=== PATIENT | male | born 1955 | race Caucasian/White ===

== ENCOUNTER → 2017-12-11 | Outpatient (CLI) | payer OTHER ==
--- NOTE | 2017-12-11 15:34 | US ---
EXAMINATION TYPE: US abdomen limited DATE OF EXAM: 12/11/2017 COMPARISON: CT abdomen pelvis 06/25/2015, ultrasound abdomen 02/10/2012 CLINICAL HISTORY: R10.84 abdominal pain, generalized. Intermittent RUQ pain EXAM MEASUREMENTS: Liver Length: 15.6 cm Gallbladder Wall: 0.2 cm CBD: 0.4 cm Right Kidney: 11.2 x 4.7 x 4.5 cm Pancreas: Obscured by bowel gas Liver: hyperechoic area right lobe = 2.5 x 1.6 x 2.0cm Gallbladder: no evidence of stones Evidence for sonographic Roegrs's sign: no CBD: appears wnl as visualized Right Kidney: no evidence of hydronephrosis or mass IMPRESSION: 1. Hyperechoic area within the right upper quadrant within the liver. This appears to been present pr eviously and likely represents a hemangioma.
== END | disposition home or self-care (01) ==
LOC: RADUSWWP 14:19
PROVIDERS: ATTEND Family Medicine
DX: R93.2 Abnormal findings on diagnostic imaging of liver and biliary tract (principal); R10.84 Generalized abdominal pain
CPT/HCPCS: 76705

== ENCOUNTER → 2018-02-09 | Outpatient (CLI) | payer OTHER ==
--- NOTE | 2018-02-10 13:25 | CT ---
EXAMINATION TYPE: CT abdomen pelvis w con DATE OF EXAM: 02/09/2018 COMPARISON: Prior exam 06/25/2015 CT abdomen pelvis, ultrasound 12/11/2017 HISTORY: ABDOMINAL PAIN X2 YEARS CT DLP: 557.2 mGycm Automated exposure control for dose reduction was used. TECHNIQUE: Helical acquisition of images from the lung bases through the pelvis have been completed. CONTRAST: Performed with Oral Contrast and with IV Contrast, patient injected with 100 mL of Isovue 300. FINDINGS: There are coronary artery calcifications present. There may be a small hiatal hernia. LUNG BASES: No significant abnormality is appreciated. AORTA: No significant abnormality is appreciated. LIVER/GB: Focal hypodense region adjacent to the inferior vena cava within the liver shows nodular en hancement which progresses over time similar to previous CT and is compatible with hemangioma, liver shows low density, there could be underlying hepatic steatosis, gallbladder is normal.. PANCREAS: No significant abnormality is seen. SPLEEN: No significant abnormality is seen. ADRENALS: No significant abnormality is seen. KIDNEYS: No significant abnormality is seen. REPRODUCTIVE ORGANS: No significant abnormality is seen BOWEL: No significant abnormality is seen. The appendix is normal. FREE AIR: No Free Air visible. ASCITES: None visible. PELVIC ADENOPATHY: None visualized. RETROPERITONEAL ADENOPATHY: No Retroperitoneal Adenopathy visible. URINARY BLADDER: Urinary bladder wall is somewhat thickened possibly due to chronic bladder outlet o bstruction, correlate to exclude cystitis. OSSEOUS STRUCTURES: No there is facet arthropathy PICC change, degenerative disc changes visualized spine, there is a spinal curvature.. IMPRESSION: NONSPECIFIC FINDINGS DESCRIBED ABOVE.
== END | disposition home or self-care (01) ==
LOC: RADCTMAIN 15:23
PROVIDERS: ATTEND Family Medicine
DX: I25.10 Atherosclerotic heart disease of native coronary artery without angina pectoris (principal); R10.84 Generalized abdominal pain
CPT/HCPCS: 74177; Q9967

== ENCOUNTER 2020-03-12 11:38 | Day surgery (SDC) | payer OTHER ==
[2020-03-11 09:58] VITALS: BMI 24.0
[~2020-03-12 11:38] MED LIST: LACTATED RINGERS 1,000 ML IV SCH; LIDOCAINE 1% (10MG/ML) FOR IV START INTRADERMA PRN
[2020-03-12 12:15] VITALS: RESP 16; TEMP 97.6
[2020-03-12] MEDS ORDERED: PROPOFOL 10 MG/ML 20 ML VIAL IV ONE (12:58)
[2020-03-12] MEDS ORDERED: LIDOCAINE 1% INJ 10MG/ML (20 ML MDV) ONE (12:58)
--- NOTE | 2020-03-12 13:45 | P.PCN ---
Date of Procedure: 03/12/20 Description of Procedure: Brief history: Patient is a pleasant 64-year-old male presenting for EGD and colonoscopy for symptoms of abdominal pain, GERD, constipation and pain with bowel movements. Patient reports symptoms presents over the last little while. Worsen constipation. Lower rectal fullness and pain with bowel movements. Also reports other diffuse abdominal pain. Procedure performed: Esophagogastroduodenoscopy with biopsy Colonoscopy Estimated blood loss: Minimal. Preoperative diagnosis: Abdominal pain, GERD, pain with bowel movements, constipation Anesthesia: MAC Procedure: After informed consent was obtained from the patient was brought into the endoscopy unit and IV sedation was administered by anesthesia under continuous monitoring. Initially upper endoscopy was done. The Olympus GF 190 video endoscope was inserted into the mouth and esophagus intubated without any difficulty and was gradually advanced into the stomach and duodenum and carefully examined. The bulb and second part of the duodenum appeared normal, with biopsies taken. The scope was then withdrawn into the stomach adequately insufflated with air and upon careful examination the antrum and body, cardia and fundus appeared normal, except for some mild scattered erythema in the antrum and body suggestive of gastritis with biopsies taken. The scope was then withdrawn into the esophagus. The GE junction was located at 40 cm to the incisors, with biopsies taken. 2 cm hiatal hernia. It appeared regular with no erythema erosions or ulcerations. Rest of the esophagus appeared normal. Patient tolerated the procedure well. At this time the patient continued to remain sedation. Initial digital rectal examination was normal. Olympus CF 190 video colonoscope was then inserted into the rectum and gradually advanced to the cecum without any difficulty. Careful examination was performed as the scope was gradually being withdrawn. The prep was excellent. The cecum, ascending colon, transverse colon, descending colon, sigmoid colon and rectum appeared normal. A few scattered diverticula in the sigmoid colon. Low-grade internal hemorrhoids. Retroflexion was performed in the rectum and no lesions were noted. Patient tolerated the procedure well. Impression: 1. Mild gastritis. Small hiatal hernia. Biopsies of the antrum and body, GE junction and duodenum. 2. Mild sigmoid diverticulosis. Low-grade internal hemorrhoids. Recommendations: Findings of this examination were discussed with the patient as well as his family. Okay to resume diet. Okay to resume medications. Await pathology from biopsies. Recommendation is for the patient to continue bowel regimen and with MiraLAX as well as local hemorrhoidal care including warm baths, limiting time on the toilet, and medicated wipes.
[2020-03-12 13:55] VITALS: BP 132/88; PULSE 62
== END 2020-03-12 14:27 | disposition home or self-care (01) ==
LOC: ORWHC2ENDO 11:38
PROVIDERS: ATTEND Internal Medicine
DX: K62.89 Other specified diseases of anus and rectum (principal); K29.50 Unspecified chronic gastritis without bleeding; K21.9 Gastro-esophageal reflux disease without esophagitis; K44.9 Diaphragmatic hernia without obstruction or gangrene; K57.30 Diverticulosis of large intestine without perforation or abscess without bleeding; K64.8 Other hemorrhoids; I25.10 Atherosclerotic heart disease of native coronary artery without angina pectoris; I10 Essential (primary) hypertension; F17.210 Nicotine dependence, cigarettes, uncomplicated; Z95.5 Presence of coronary angioplasty implant and graft; Z79.891 Long term (current) use of opiate analgesic; Z79.899 Other long term (current) drug therapy
CPT/HCPCS: 88305; 45378; 43239; J2001; J2704

== ENCOUNTER → 2021-10-20 | Day surgery (SDC) | payer MEDICARE, OTHER ==
[2021-10-18 13:48] VITALS: BMI 24.4
[~2021-10-20] MED LIST changes: +LIDOCAINE 1% (10MG/ML) FOR IV START INTRADERMA ONE; -LIDOCAINE 1% (10MG/ML) FOR IV START INTRADERMA PRN; +LIDOCAINE 2% INJ 20 MG/ML (2 ML VIAL) ONE; +PROPOFOL 10 MG/ML 20 ML VIAL IV ONE
[2021-10-20 08:18] VITALS: RESP 16; TEMP 97.6
--- NOTE | 2021-10-20 09:01 | P.PCN ---
Date of Procedure: 10/20/21 Procedure(s) Performed: Brief history: Patient is a pleasant 66-year-old white male scheduled for an elective upper endoscopy as well as colonoscopy as a part of evaluation of GERD/abdominal pain and intermittent rectal bleeding Procedure performed: Esophagogastroduodenoscopy with biopsy Colonoscopy Preoperative diagnosis: GERD/abdominal pain Intermittent rectal bleeding Anesthesia: [facility] [place] Procedure: After informed consent was obtained from the patient was brought into the endoscopy unit and IV sedation was administered by anesthesia under continuous monitoring. Initially upper endoscopy was done. The Olympus GF 160 video endoscope was inserted inserted into the mouth and esophagus intubated without any difficulty and was gradually advanced into the stomach and duodenum and carefully examined. The bulb and second part of the duodenum appeared normal. The scope was then withdrawn into the stomach adequately insufflated with air and upon careful examination the antrum had mild gastritis and biopsies were done from this area. The body, cardia and fundus appeared normal. The scope was then withdrawn into the esophagus. The GE junction was located at 40 cm to the incisors. Small hiatal hernia noted. The GE junction appeared regular and there was a small island of Betancourt's appearing mucosa just proximal to the GE junction measuring 1 mm which was biopsied. Rest of the esophagus appeared normal. Patient tolerated the procedure well. At this time the patient continued to remain sedation. Initial digital rectal examination was normal. Olympus CF 160 video colonoscope was then inserted into the rectum and gradually advanced to the cecum without any difficulty. Careful examination was performed as the scope was gradually being withdrawn. The prep was excellent. The cecum, ascending colon, transverse colon, descending colon, sigmoid colon and rectum appeared normal. Scattered sigmoid diverticulosis seen. Retroflexion was performed in the rectum and monitor hemorrhoids were noted. Patient tolerated the procedure well. Impression: 1. Upper endoscopy revealed small hiatal hernia, irregular GE junction and mild antral gastritis 2. Colonoscopy revealed scattered sigmoid diverticulosis but no evidence of colorectal neoplasia Recommendations: Findings of this examination were discussed with the patient as well as his family. He was advised to continue with omeprazole 20 mg daily and follow antireflux. Recommend repeat screening colonoscopy in 10 years.
[2021-10-20 09:31] VITALS: BP 137/87; PULSE 59
== END ==
LOC: ORWHC2ENDO 07:45
PROVIDERS: ATTEND Internal Medicine Gastroenterology
DX: K29.50 Unspecified chronic gastritis without bleeding (principal); K22.70 Barrett's esophagus without dysplasia; K21.9 Gastro-esophageal reflux disease without esophagitis; K44.9 Diaphragmatic hernia without obstruction or gangrene; K57.31 Diverticulosis of large intestine without perforation or abscess with bleeding; K64.9 Unspecified hemorrhoids; I10 Essential (primary) hypertension; E78.5 Hyperlipidemia, unspecified; F17.210 Nicotine dependence, cigarettes, uncomplicated; I25.2 Old myocardial infarction; Z79.899 Other long term (current) drug therapy
CPT/HCPCS: 88305; 45378; 43239; J2704; J2001

== ENCOUNTER 2023-08-04 14:52 | Emergency (ER) | payer MEDICARE, OTHER ==
--- NOTE | 2023-08-04 15:16 | ED ---
General Adult HPI - General Source: patient, RN notes reviewed Mode of arrival: ambulatory Limitations: no limitations <Nneka Son - Last Filed: 08/04/23 15:18> <Catalino Wen - Last Filed: 08/04/23 19:41> - General Source: RN notes reviewed, old records reviewed, Caregiver Mode of arrival: ambulatory Limitations: no limitations <Sudhakar Giron - Last Filed: 08/17/23 20:29> - General Chief complaint: GI Bleed Stated complaint: blood in stool Time Seen by Provider: 08/04/23 15:04 - History of Present Illness Initial comments: This is a 68-year-old male who presents to the emergency department for rectal bleeding. Reports dark red blood in his stool over the last 3 days. He is on both Brilinta and baby aspirin. He called his primary care provider, and was advised to come to the emergency department for evaluation. Reports abdominal pain, but states that he always has abdominal pain. (Nneka Son) - Related Data Home Medications Medication Instructions Recorded Confirmed DULoxetine HCL [Cymbalta] 30 mg PO DAILY 03/11/20 02/17/23 Metoprolol Tartrate [Lopressor] 25 mg PO HS 03/11/20 02/17/23 Pregabalin [Lyrica] 100 mg PO TID 03/11/20 02/17/23 Ergocalciferol [Vitamin D2 (1250 1,250 mcg PO QMONTHLY 02/17/23 02/17/23 Mcg = 31445 Iu)] Ibuprofen [Motrin] 800 mg PO BID 02/17/23 02/17/23 Losartan Potassium [Cozaar] 100 mg PO DAILY 02/17/23 02/17/23 Nitroglycerin Sl Tabs [Nitrostat] 0.4 mg SUBLINGUAL Q5M PRN 02/17/23 02/17/23 Pantoprazole [Protonix] 40 mg PO DAILY 02/17/23 02/17/23 hydroCHLOROthiazide [Hydrodiuril] 25 mg PO DAILY 02/17/23 02/17/23 Previous Rx's Medication Instructions Recorded Aspirin 81 mg PO DAILY 30 Days #30 tab 02/24/23 Atorvastatin [Lipitor] 80 mg PO HS #30 tab 02/24/23 Calcium Carbonate [Tums] 1,000 mg PO QID PRN #120 tab 02/24/23 Fenofibrate [Lofibra] 160 mg PO DAILY 30 Days #30 tab 02/24/23 Thiamine [Vitamin B-1] 100 mg PO BID #60 tab 02/24/23 Ticagrelor [Brilinta] 90 mg PO BID 21 Days #42 tab 02/24/23 Allergies Allergy/AdvReac Type Severity Reaction Status Date / Time No Known Allergies Allergy Verified 08/04/23 15:17 Review of Systems ROS Other: All systems not noted in ROS Statement are negative. <Nneka Son - Last Filed: 08/04/23 15:18> ROS Other: All systems not noted in ROS Statement are negative. <Catalino Wen - Last Filed: 08/04/23 19:41> ROS Other: All systems not noted in ROS Statement are negative. <Sudhakar Giron - Last Filed: 08/17/23 20:29> ROS Statement: Those systems with pertinent positive or pertinent negative responses have been documented in the HPI. Past Medical History Past Medical History: GERD/Reflux, Hyperlipidemia, Hypertension, Myocardial Infarction (IA) Additional Past Medical History / Comment(s): Back pain, ETOH Last Myocardial Infarction Date:: 2011 History of Any Multi-Drug Resistant Organisms: None Reported Past Surgical History: Heart Catheterization With Stent, Tonsillectomy Additional Past Surgical History / Comment(s): [facility] Procedures Past Anesthesia/Blood Transfusion Reactions: No Reported Reaction Date of Last Stent Placement:: 2011 Past Psychological History: No Psychological Hx Reported Smoking Status: Current every day smoker Past Alcohol Use History: Daily Additional Past Alcohol Use History / Comment(s): Drinks 6-8 beers a day. Past Drug Use History: None Reported - Past Family History Mother Family Medical History: No Reported History Sister(s) Family Medical History: Cancer Additional Family Medical History / Comment(s): Breast cancer <Nneka Son - Last Filed: 08/04/23 15:18> General Exam <Nneka Son - Last Filed: 08/04/23 15:18> - General Exam Comments Initial Comments: Visual Physical Exam Vital signs reviewed General: Well-appearing, nontoxic, no acute distress. Head: Normocephalic, atraumatic Eyes: PERRLA, EOMI ENT: Airway patent Chest: Nonlabored breathing Skin: No visual rash, normal skin tone Neuro: Alert and oriented 3 Musculoskeletal: No gross abnormalities (Nneka Son) Course <Sudhakar Giron - Last Filed: 08/17/23 20:29> Vital Signs 08/04/23 15:15 Temperature 98.5 F Pulse Rate 68 Respiratory 16 Rate Blood Pressure 128/83 O2 Sat by Pulse 99 Oximetry - Reevaluation(s) Reevaluation #1: Records reviewed (Sudhakar Giron) Reevaluation #2: Patient symptoms unchanged (Sudhakar Giron) Reevaluation #3: Patient informed of results and questions answered (Sudhakar Giron) Medical Decision Making <Nneka Son - Last Filed: 08/04/23 15:18> - Medical Decision Making I performed the QuickNote portion of this chart. Signed Nneka Son PA-C. (Nneka Son) Disposition <Nneka Son - Last Filed: 08/04/23 15:18> Is patient prescribed a controlled substance at d/c from ED?: No Time of Disposition: 19:42 <Catalino Wen - Last Filed: 08/04/23 19:41> <Sudhakar Giron - Last Filed: 08/17/23 20:29> Clinical Impression: GI bleed Disposition: HOME SELF-CARE Condition: Good Instructions (If sedation given, give patient instructions): Gastrointestinal Bleeding (ED) Additional Instructions: Please return to the Emergency Department if symptoms worsen or any other concerns. Please follow-up with your PCP. Referrals: Ninfa Roth [Primary Care Provider] - 1-2 days
[2023-08-04 15:37] VITALS: BP 128/83; PULSE 68; RESP 16; TEMP 98.5
== END 2023-08-04 19:59 | disposition home or self-care (01) ==
LOC: EC 14:52
DX: K92.2 Gastrointestinal hemorrhage, unspecified (principal); K21.9 Gastro-esophageal reflux disease without esophagitis; I10 Essential (primary) hypertension; I25.2 Old myocardial infarction; F17.200 Nicotine dependence, unspecified, uncomplicated; Z79.899 Other long term (current) drug therapy
CPT/HCPCS: 99284

== ENCOUNTER → 2023-12-04 | Outpatient (CLI) | payer MEDICARE, OTHER ==
--- NOTE | 2023-12-04 15:24 | US ---
EXAMINATION TYPE: US liver DATE OF EXAM: 12/04/2023 COMPARISON: CT 02/09/2018 US 12/11/2017 CLINICAL INDICATION: Male, 68 years old with history of D696 THROMBOCYTOPENIA, UNSPECIFIED; Abdominal pain; constipation/diarrhea/IBS; HTN; Alcohol use; Hx hemangioma TECHNIQUE: Multiple sonographic images of the right upper quadrant are obtained. FINDINGS: EXAM MEASUREMENTS: Liver Length: 15.1 cm Gallbladder Wall: 0.2 cm CBD: Unable to identify cm Right Kidney: 11.1 x 4.9 x 4.5 cm [employer]ACHINE OPERATOR NOTES: Pancreas: Obscured by bowel gas Liver: Echogenic area redemonstrated = 1.6 x 1.6 x 1.5 cm. Gallbladder: wnl Evidence for sonographic Rogers's sign: No CBD: unable to identify Right Kidney: wnl IMPRESSION: Hepatic steatosis with focal area of increased echogenicity. Unclear if this is patient reported mario ngioma. No hemangioma definitively visualized on prior CT 02/09/2018. Consider MRI liver mass protocol if clinically warranted.
[2023-12-05 02:38] LABS: Basophils # (A) 0.02 X 10*3/uL (0.00-0.10); Basophils % (A) 0.4 %; Eosinophils # (A) 0.12 X 10*3/uL (0.04-0.35); Eosinophils % (A) 2.3 %; HCT 42.7 % (39.6-50.0); HGB 14.2 g/dL (13.0-17.0); Lymphocytes % (A) 32.7 %; MCH 31.4 pg (27.0-32.0); MCHC 33.3 g/dL (32.0-37.0); MCV 94.5 FL (80.0-97.0); Mean Platelet Volume 13.7 FL (9.5-12.2); Monocytes # (A) 0.53 X 10*3/uL (0.20-1.00); Monocytes % (A) 10.2 %; NRBC Per 100 WBC 0 X 10*3/uL (0.00-0.01); Neutrophils # (A) 2.81 X 10*3/uL (1.80-7.70); Platelet Count 132 X 10*3/uL (140-440); RBC 4.52 X 10*6/uL (4.40-5.60); RDW 13.4 % (11.5-14.5)
[2023-12-05 02:52] LABS: BUN/Creat Ratio 13.62 Ratio (12.00-20.00); Blood Urea Nitrogen 10.9 mg/dL (9.0-27.0); Carbon Dioxide 25.3 mmol/L (21.6-31.8); Chloride 105 mmol/L (96-109); Glucose 88 mg/dL (70-110); Potassium 4.5 mmol/L (3.5-5.5); Sodium 141 mmol/L (135-145)
[2023-12-05 02:53] LABS: ALT 23 U/L (10-49); AST 29 U/L (14-35); Albumin 4.6 g/dL (3.8-4.9); Albumin/Globulin Ratio 2.09 Ratio (1.60-3.17); Alkaline Phosphatase 69 U/L (41-126); Calcium 9.3 mg/dL (8.7-10.3); Globulin 2.2 g/dL (1.6-3.3); Total Bilirubin 0.4 mg/dL (0.3-1.2); Total Protein 6.8 g/dL (6.2-8.2)
== END | disposition home or self-care (01) ==
LOC: RADUSWWP 13:06
PROVIDERS: ATTEND Internal Medicine Gastroenterology
DX: K76.0 Fatty (change of) liver, not elsewhere classified (principal); D69.6 Thrombocytopenia, unspecified; F10.10 Alcohol abuse, uncomplicated
CPT/HCPCS: 76705; 80053; 85025

== ENCOUNTER → 2023-12-11 | Outpatient (CLI) | payer MEDICARE ==
--- NOTE | 2023-12-14 08:58 | MR ---
EXAMINATION TYPE: MR liver wo/w con DATE OF EXAM: 12/11/2023 9:51 PM CLINICAL INDICATION:Male, 68 years old with history of R16.0 Hepatomegaly; PHH, Hepatomegaly. Lesion seen on prior ultrasound. COMPARISON: Ultrasound liver 12/04/2023 TECHNIQUE: Multiplanar multi-sequence imaging was performed without contrast. Post contrast imaging was performed. Post IV contrast subtraction images were also submitted for review. IV Contrast: 8 cc Gadavist FINDINGS: LOWER CHEST: No gross irregularity. ABDOMEN Liver: No evidence for hepatic steatosis or cirrhosis. Right hepatic lobe area correlating with ultra sound measuring 1.6 x 1.9 cm near the caudate lobe. This is higher T2 signal and demonstrates lower T 1 signal. Grade peripheral nodular discontinuous progressive enhancement. No suspicious enhancement w ithin the liver. Gallbladder and Bile ducts: No evidence for ductal dilation, or biliary stricture or evidence of chol edocholithiasis. The gallbladder is within normal limits. Pancreas: No ductal dilation. No evidence for solid mass. Spleen: Normal for size. Adrenal glands: Unremarkable. Kidneys: No evidence for obstructive uropathy. No suspicious renal masses. Stomach and Bowel: No evidence for bowel wall thickening or evidence for obstruction. Retroperitoneum/Peritoneum: No evidence of pneumoperitoneum or free fluid. Vasculature: No aortic aneurysm. Musculoskeletal: The osseous structures appear intact. Lymph Nodes: No gross evidence for lymphadenopathy. Abdominal wall: Unremarkable. IMPRESSION: Hepatic lesion most compatible with hemangioma. No suspicious liver masses.
== END | disposition home or self-care (01) ==
LOC: RADMRIMAIN 20:45
PROVIDERS: ATTEND Internal Medicine Gastroenterology
DX: R16.0 Hepatomegaly, not elsewhere classified (principal)
CPT/HCPCS: 74183; A9585